=== PATIENT | male | born 1975 | race Caucasian/White ===

== ENCOUNTER 2020-04-18 19:35 | Emergency (ER) | payer BC, SELFPAY ==
[2020-04-18 19:45] VITALS: BP 148/83; PULSE 131; RESP 20; TEMP 38.2; O2SAT 98
--- NOTE | 2020-04-18 19:47 | ED.MALEGU ---
HPI - Male Genitourinary General Chief complaint: Urogenital-Male Stated complaint: std tests Time Seen by Provider: 04/18/20 19:45 Source: patient and RN notes reviewed Mode of arrival: ambulatory Limitations: no limitations History of Present Illness HPI Narrative: 45 year old male who presents to [facility] care with complaints of being notified by girlfriend that she has STD of GC and chlamydia three days ago and he is having some penile drainage and some dysuria. Patient states that he is also achy today all over and is running mildly elevated temperature.Patient denies any cold symptoms, no cough or feelings of congestion voiced, denies any problems with taste or smell, headaches or nasal congesion. MD Complaint: penile discharge, dysuria and possible STD exposure Onset (ago): day(s) (3) Duration: progressively worsening Location: penis Severity: mild Severity scale (1-10): 3 Quality: burning Exacerbating factors: urination Context: known STD exposure Associated symptoms: Reports discharge, dysuria and fever Related Data Sexually active: Yes Allergies Allergy/AdvReac Type Severity Reaction Status Date / Time No Known Allergies Allergy Verified 04/18/20 19:53 Review of Systems Review of Systems: Narrative: CONSTITUTIONAL: Denies fever, chills, or sweats. EYES: Denies visual changes, redness, or discharge. ENT: Denies rhinorrhea, congestion, sore throat, or otalgia. CARDIOVASCULAR: Denies chest pain, palpitations, or edema. RESPIRATORY: Denies cough or dyspnea. GASTROINTESTINAL: Denies abdominal pain, nausea, vomiting, or diarrhea. GENITOURINARY: Positive dysuria no visible hematuria, yellowish drainage from penis, denies any testicle pain. SKIN: Denies rash or itching. MUSCULOSKELETAL: Denies back pain, joint pain, states generalized body aches. NEUROLOGIC: Denies headache, numbness, or weakness. PSYCHIATRIC: Positive history of anxiety or depression. All systems reviewed & are unremarkable except as noted in HPI and below PMFSH Past Medical History Medical History (Updated 04/20/20 @ 08:36 by Katiana Gould NP) Anxiety and depression Surgical History Surgical History (Updated 04/18/20 @ 20:29 by Katiana Gould NP) History of repair of anterior cruciate ligament of right knee Hx of inguinal herniorrhaphy Social History Social History (Updated 04/20/20 @ 08:37 by Katiana Gould NP) Smoking packs per day: 0.5 Smoking cigarettes per day: 10.0 Smoking status: Current every day smoker Alcohol use details: reports no alcohol use Substance use: unknown Gender identity (if verbalized by the patient): Male Comments At time of signature, agree with nursing past medical, surgical, social and family history. There is no relevant family history pertinent to the presenting complaint Exam Narrative: Exam Narrative: GENERAL: Well-appearing, well-nourished, and in no acute distress. HEAD: Normocephalic, atraumatic. EYES: PERRLA and EOMI. ENT: Nares clear, no rhinorrhea or epistaxis. Mucous membranes moist. TM s normal with good light reflex, throat pink with no exudates no tonsil enlargement. NECK: Supple. no lymphadenopathy CHEST: Clear to auscultation. No respiratory distress.SAO2 98% on room air. HEART: Regular rate and rhythm. No murmur heard. Normal peripheral pulses. ABDOMEN: Soft, nontender, nondistended, normal active bowel sounds.Known STD exposure stated with yellow penile drainage and burning with urination, denies any testicle pain or swelling. EXTREMITIES: Normal range of motion. No edema. SKIN: Warm, dry, no rash. NEURO: No focal deficits. Alert and oriented x3,anxious and upset over STD exposure. Course Vital Signs Vital signs: Vital Signs Temperature 38.2 C H 04/18/20 19:45 Pulse Rate 131 H 04/18/20 19:45 Respiratory Rate 20 04/18/20 19:45 Blood Pressure 148/83 H 04/18/20 19:45 Pulse Oximetry 98 04/18/20 19:45 Temperature 37.7 C H 04/18/20 20:25 Pulse Rate
[2020-04-18] MEDS: LIDOCAINE HCL 1% LOCAL INJ 20 ML VIAL IM (20:00)
[2020-04-18] MEDS: AZITHROMYCIN 250 MG TABLET 1000 MG PO (20:01)
[2020-04-18] MEDS: cefTRIAXone 250 MG VIAL IM (20:01)
[2020-04-18 20:25] VITALS: TEMP 37.7
== END 2020-04-18 20:25 | disposition home or self-care (01) ==
PROVIDERS: Emergency Provider Registered Nurse
DX: A64 Unspecified sexually transmitted disease (principal); R36.9 Urethral discharge, unspecified; F17.210 Nicotine dependence, cigarettes, uncomplicated
CPT/HCPCS: 87491; 87591; 87661; 96372; 99213; A9270; G0463; J0696